=== PATIENT | male | born 1975 | race Caucasian/White ===

== ENCOUNTER 2017-06-12 09:29 | Day surgery (SDC) | payer OTHER ==
[2017-06-11 13:56] VITALS: BMI 30.5
[2017-06-12] MEDS ORDERED: MIDAZOLAM HCL 2 MG/2 ML SINGLE DOSE VIAL ONE ×2 (11:05→11:41)
[2017-06-12] MEDS ORDERED: BUPIVACAINE HCL/PF 2.5 MG/ML - 30 ML VIAL IJ ONE (11:15)
[2017-06-12] MEDS ORDERED: ONDANSETRON 4 MG/2 ML VIAL ONE (12:03)
[2017-06-12] MEDS ORDERED: ceFAZolin SODIUM 1 GM VIAL ONE (12:03)
[2017-06-12] MEDS ORDERED: DEXAMETHASONE SOD PHOSPHATE 4 MG/1 ML VIAL ONE (12:03)
[2017-06-12] MEDS ORDERED: ONDANSETRON 4 MG/2 ML VIAL IVPUSH PRN (12:26)
[2017-06-12] MEDS ORDERED: oxyCODONE HCL 5 MG TABLET PO PRN (12:26)
[2017-06-12] MEDS ORDERED: PROMETHAZINE HCL 25 MG/1 ML VIAL IVPUSH PRN (12:26)
[2017-06-12] MEDS ORDERED: LACTATED RINGERS SOLUTION 1,000 ML IV SCH (12:30)
[2017-06-12 16:43] VITALS: TEMP 97.8
[2017-06-12 16:50] VITALS: BP 118/75; PULSE 65
--- NOTE | 2017-06-16 00:18 | OP ---
DATE OF OPERATION: 06/12/2017 SURGEON: Shubham Stroud M.D. CRESTER: Phillip Garibay PREOPERATIVE DIAGNOSIS: 1. Left knee medial lateral meniscal tear. 2. Left knee cartilage injury. 3. Left knee synovitis. POSTOPERATIVE DIAGNOSIS: 1. Left knee medial lateral meniscal tear. 2. Left knee cartilage injury. 3. Left knee synovitis. PROCEDURE: 1. Left knee arthroscopy, partial meniscectomy medial and lateral meniscus. 2. Left knee arthroscopy with chondroplasty and abrasion plasty. 3. Left knee arthroscopy synovectomy/major. CPT CODES: 76924, 30948, 95254. FINDINGS: 1. Medial meniscus posterior horn to body tear. 2. Medial meniscus anterior horn tear. 3. Synovitis, patellofemoral medial lateral notch area. 4. ACL lateral meniscus anterior horn tear. 4. Antegrade 3 cartilage injury medial femoral condyle. 5. ACL and PCL intact. 6. Antegrade 1-2 cartilage injury, lateral plateau. 8. Large with anterior grade 2-3 cartilage injury anterior medial patellar femoral trochlea. PROCEDURE: Informed consent was obtained. The patient was taken to the operating room where the left lower extremity was prepped and draped in a sterile fashion. A tourniquet was placed on the left upper thigh but not inflated. Using standard arthroscopic technique, a lateral incision and portal were made which allowed for introduction of the camera into the suprapatellar bursa. This was then taken to the medial joint line where under direct visualization, a medial incision and portal were made. Excessive synovium noted in the medial, lateral, patellofemoral and notch area was removed by the up-biting shaver and Bovie cautery. This was found to bring inflammatory tissue into the joint surface, a source of joint pain and dysfunction. Probing of the medial and lateral meniscus found tears described in the findings. These were removed with an up-biting shaver and taken back to a stable rim. Grade 2-3 degenerative changes were treated with chondroplasty, removing all flaking surfaces with low setting Bovie used along the periphery. Grade 4 changes were treated with abrasion-plasty. All areas of the knee were once again re-examined. The knee was then drained. A single suture was placed on all portals. Sterile dressing was placed. The patient was transferred to the recovery room. SHUBHAM STROUD M.D. [id number]
--- NOTE | 2017-06-16 13:31 | PATH ---
Surgical Pathology Report Patient Name: NUBIA SIMONS [facility]. Rec. #: [id number] /Age/Gender: 1975 (Age: 42) / M Account: [id number] Location: [facility] AMBUL[facility]ORY Taken: 06/12/2017 Received: 06/12/2017 Reported: 06/16/2017 Physicians: Shubham Moss M.D. Specimen(s) Received LEFT KNEE SHAVINGS Clinical History Left knee derangement Final Diagnosis KNEE, LEFT, ARTHROSCOPIC SHAVING: FIBROCARTILAGE WITH MYXOID DEGENERATIVE CHANGES, ALONG WITH PORTIONS OF SYNOVIUM . Electronically Signed Yong Yusuf M.D. Gross Description Received in formalin, labeled "left knee shavings," is a 2.5 x 2.5 x 0.3 cm. aggregate of rodriguez-yellow soft tissue fragments. A medical device sales representative portion is submitted in one cassette. [facility]/06/15/2017 [facility]/06/15/2017
== END 2017-06-12 16:10 | disposition home or self-care (01) ==
LOC: FASU 09:29
PROVIDERS: ATTEND Orthopaedic Surgery
PROC: 0SBD4ZZ Excision of Left Knee Joint, Percutaneous Endoscopic Approach (ICD-10-PCS; 2017-06-12)
PROC: 0SBD4ZZ Excision of Left Knee Joint, Percutaneous Endoscopic Approach (ICD-10-PCS; principal; 2017-06-12 11:46)
DX: S83.242A Other tear of medial meniscus, current injury, left knee, initial encounter (principal); S83.282A Other tear of lateral meniscus, current injury, left knee, initial encounter; S83.8X2A Sprain of other specified parts of left knee, initial encounter; M65.862 Other synovitis and tenosynovitis, left lower leg; X58.XXXA Exposure to other specified factors, initial encounter; Y93.9 Activity, unspecified; Y92.9 Unspecified place or not applicable
CPT/HCPCS: 88304-TC; 94760